=== PATIENT | male | born 2000 ===

== ENCOUNTER 2023-12-28 05:43 | Emergency (ER) | payer MEDICAID, SELFPAY ==
[2023-12-28 05:53] VITALS: BP 108/75; PULSE 78; RESP 18; TEMP 36.4; O2SAT 99; BMI 17.5
[2023-12-28 06:54] LABS: Basophils Absolute Auto 0.1 X10*3/uL (0.0-0.2); Basophils Percent Auto 0.6 % (0-2); Eosinophils Absolute Auto 0.3 X10*3/uL (0.0-0.4); Eosinophils Percent Auto 3.1 % (0-4); Hematocrit 45.3 % (42.0-52.0); Hemoglobin 16.1 g/dl (14.0-18.0); Imm Gran Abs Auto 0.02 X10*3/uL (0.00-0.03); Imm Gran Pct Auto 0.2 % (0.0-0.4); Lymphocytes Absolute Auto 2.1 X10*3/uL (1.2-4.9); Lymphocytes Percent Auto 24.8 % (20-40); MANUAL DIFF FLAG NO; Mean Corpuscular HGB Conc 35.5 g/dl (31.0-36.0); Mean Corpuscular Hemoglobin 30.3 pg (27.0-33.0); Mean Corpuscular Volume 85.3 fL (80.0-98.0); Mean Platelet Volume 10.3 fL (9.4-12.4); Monocytes Absolute Auto 0.7 X10*3/uL (0.1-1.2); Monocytes Percent Auto 8.1 % (2-11); Neutrophils Absolute Auto 5.3 x10*3/uL (2.0-8.3); Neutrophils Percent Auto 63.2 % (45-73); Platelet Count 191 X10*3/uL (160-400); Red Blood Count 5.31 X10*6/uL (4.60-5.80); Red Cell Distribution Width 11.7 % (11.0-16.0); White Blood Count 8.4 X10*3/uL (4.8-10.8)
[2023-12-28 07:09] VITALS: BP 119/74; PULSE 74; RESP 16; TEMP 36.8; O2SAT 100
--- NOTE | 2023-12-28 07:14 | PC.NURSE ---
a&ox4. vss and up to date. pt presents to ED w/ left sided facial swelling d/t chipped tooth on left side. tooth split in half. facial swelling noted. pt denies fever/chills. c/o 9/10 pain. states nothing makes pain increase/decrease. pt waiting to be seen by ED provider.
[2023-12-28 07:16] LABS: Alanine Aminotransferase 13 U/L (0-40); Alkaline Phosphatase 131 U/L (39-117); Anion Gap 12 (12-20); Aspartate Amino Transferase 15 U/L (5-37); Bilirubin Total 0.4 mg/dL (0.0-1.0); Blood Urea Nitrogen 10 mg/dL (9-16); Carbon Dioxide 25 mmol/L (22-29); Chloride 109 mmol/L (96-108); Creatinine Clr Calc Pharmacy 87.7; Estimated Glomerular Filt Rate > 60; Glucose Random 98 mg/dL (60-115); Sodium 141 mmol/L (135-145); Total Protein 7.4 g/dL (6.5-8.0)
--- NOTE | 2023-12-28 07:48 | ED_ITS ---
HPI - Dental/Oral General Chief complaint: Dental/Oral Stated complaint: ?Dental pain/Facial swelling Time Seen by Provider: 12/28/23 07:15 Source: patient Mode of arrival: ambulatory Limitations: language barrier History of Present Illness HPI Narrative: History obtained through siderographer. Left facial swelling with tooth pain. Patient has a left upper tooth that is decayed down to the gum, has not seen a dentist Complaint: tooth pain and tooth injury Teeth map: 2 1. Onset (ago): day(s) Duration: constant Severity: moderate Related Data Previous Rx's Medication Instructions Recorded amoxicillin 875 mg-potassium 1 tab PO BID #14 tabs 12/28/23 clavulanate 125 mg tablet naproxen 500 mg tablet (Naprosyn) 500 mg PO BID #20 tabs 12/28/23 Allergies Allergy/AdvReac Type Severity Reaction Status Date / Time No Known Allergies Allergy Verified 12/28/23 05:48 [No Known Allergies*] Review of Systems 2 Review of Systems: Yes all other systems are reviewed and are negative Neurologic: Denies Sensory deficit (Neuro) [facility] Social History Social History Smoked in Last 30 Days: No Use of substances other than those prescribed or required for medical reasons: No Advance Directives: No Physical Exam 2 Vital Signs: Vital Signs: Last Vital Signs Temp 98.2 F 12/28/23 07:09 Pulse 74 12/28/23 07:09 Resp 16 12/28/23 07:09 BP 119/74 12/28/23 07:09 Pulse Ox 100 12/28/23 07:09 O2 Del Method Room Air 12/28/23 07:09 BMI result Body Mass Index 17.5 Const: General: healthy appearing Nutritional Appearance: average body habitus Orientation/consciousness: oriented to person and patient oriented x3 Limitations: no limitations HEENT: Other: left facial swelling with upper premolar broken down to the gum line, no pus or drainage noted Ears: external ears normal General nose exam: Normal external nose present Mouth: Normal oral and palatal mucosa present and oropharynx normal Throat: Yes posterior oropharynx normal Eyes: General: appearance normal, both eyes and all related structures Neck: Other: supple Neck: Yes normal visual inspection Chest: Chest palpation & inspection: normal inspection of the chest Resp: Auscultation: clear to auscultation bilaterally Cardio: Jugular venous distension: no JVD Rate: regular rate Rhythm: r egular rhythm Heart sounds: S1 normal heart sound present and S2 normal heart sound present GI: Inspection: Yes normal to inspection Palpation (GI): Soft to palpation, nontender and No hepatosplenomegaly present Auscultation: normal bowel sounds : General: Yes no CVA tenderness Back/Spine/Pelvis: Back: no CVA tenderness Skin: General skin exam: no rashes or lesions noted Neuro: General: oriented to person and patient oriented x3 Cranial nerves: Yes CN's II-XII intact bilaterally Motor exam (neuro): 5/5 motor strength present throughout Sensory Exam: No Sensory deficit (Neuro) Extrem: General: Yes normal to inspection Psych: Appearance: grossly normal Course Reevaluation(s) Reevaluation #1: Facial swelling, no pus drainage will treat with augmentin and naprosyn Time: 07:52 Medical Decision Making Differential Diagnosis Differential Diagnoses: The differential diagnosis associated with the presentation includes (dental abscess, dental infection, sinusitis) Admission/Observation Consideration of admission/observation: Escalation of care including admission/observation considered (upon arrival patient considered for admission) Lab Data 12/28/23 06:49 12/28/23 06:49 Labs: Lab Results 12/28/23 Range/Units 06:49 WBC 8.4 (4.8-10.8) X10*3/uL RBC 5.31 (4.60-5.80) X10*6/uL Hgb 16.1 (14.0-18.0) g/dl Hct 45.3 (42.0-52.0) % MCV 85.3 (80.0-98.0) fL MCH 30.3 (27.0-33.0) pg MCHC 35.5 (31.0-36.0) g/dl RDW 11.7 (11.0-16.0) % Plt Count 191 (160-400) X10*3/uL MPV 10.3 (9.4-12.4) fL Immature Gran % (Auto) 0.2 (0.0-0.4) % Neut % (Auto) 63.2 (45-73) % Lymph % (Auto) 24.8 (20-40) % [place] % (Auto) 8.1 (2-11) % Eos % (Auto) 3.1 (0-4) % Baso % (Auto) 0.6 (0-2) % Lymph # (Auto) 2.1 (1.2-4.9) X10*3/uL [place] # (Auto) 0.7 (0.1-1.2) X10*3/uL Eos # (Auto) 0.3 (0.0-0.4) X10*3/uL Baso # (Auto) 0.1 (0.0-0.2) X10*3/uL Abs Immat Gran (auto) 0.02 (0.00-0.03) X10*3/uL Absolute Neuts (auto) 5.3 (2.0-8.3) x10*3/uL Absolute Nucleated RBC 0.000 (0.0-0.012) X10*3/uL Nucleated RBC % (auto) 0.0 (0.0-0.2) /100WBC Sodium 141 (135-145) mmol/L Potassium 5.0 (3.3-5.1) mmol/L Chloride 109 H (96-108) mmol/L Carbon Dioxide 25 (22-29) mmol/L Anion Gap 12 (12-20) BUN 10 (9-16) mg/dL Creatinine 0.95 (0.5-1.4) mg/dL Estim Creat Clear Calc 87.7 Estimated GFR > 60 Random Glucose 98 (60-115) mg/dL Calcium 9.0 (8.4-10.2) mg/dL Total Bilirubin 0.4 (0.0-1.0) mg/dL AST 15 (5-37) U/L ALT 13 (0-40) U/L Alkaline Phosphatase 131 H (39-117) U/L Total Protein 7.4 (6.5-8.0) g/dL Albumin 4.0 (3.5-5.0) g/dL Tests considered The following testing was considered but not selected: I considered dental imaging but no access to a panorex film for dental imaging Social Determinants Patient?s care significantly limited by Social Determinants of Health including: Low income Discharge Plan Discharge Clinical Impression: Toothache, Dental caries, Fracture of tooth Patient Disposition: Home, Self-Care Instructions: Toothache (ED), Tooth Extraction (DC) Prescriptions: New amoxicillin-pot clavulanate 875-125 mg tablet 1 tab PO BID Qty: 14 0RF naproxen [Naprosyn] 500 mg tablet 500 mg PO BID Qty: 20 0RF [facility] days
[2023-12-28] MEDS: Amoxicillin/Potassium Clav 875 MG TABLET PO (08:05)
[2023-12-28] MEDS: Ketorolac Tromethamine 60 MG/2 ML VIAL IM (08:06)
--- NOTE | 2023-12-28 08:06 | PC.NURSE ---
medication administered per provider order. pt provided w/ d/c paperwork. pt leaving [facility] facility at this time.
[2023-12-28 08:16] VITALS: BP 119/74; PULSE 74; RESP 16; TEMP 36.8; O2SAT 100
== END 2023-12-28 08:18 | disposition home or self-care (01) ==
PROVIDERS: Emergency Provider Emergency Medicine
DX: K02.9 Dental caries, unspecified (principal); K03.81 Cracked tooth; Z79.899 Other long term (current) drug therapy
CPT/HCPCS: 36415; 80053; 85025; 96372; 99284; J1885

== ENCOUNTER 2024-06-04 17:39 | Emergency (ER) | payer OTHER, SELFPAY ==
--- NOTE | 2024-06-04 17:55 | ED.GENADULT ---
HPI - General Adult General Chief complaint: Headache Stated complaint: migraine Related Data Previous Rx's ?Medication ?Instructions ?Recorded amoxicillin 875 mg-potassium 1 tab PO BID #14 tabs 12/28/23 clavulanate 125 mg tablet naproxen 500 mg tablet (Naprosyn) 500 mg PO BID #20 tabs 12/28/23 Allergies Allergy/AdvReac Type Severity Reaction Status Date / Time No Known Allergies Allergy Verified 06/04/24 17:58 [No Known Allergies*] PMFSH Social History Social History Advance Directives: No Advance Directives Information Provided: No Do you have a plan to hurt others: No Plan Physical Exam ED Vital Signs: Vital Signs - 24 hr 06/04/24 17:56 Temperature 98.4 F Pulse Rate 73 Respiratory Rate 16 Blood Pressure 129/79 Pulse Oximetry 97 Oxygen Delivery Method Room Air BMI result Body Mass Index 20.2 Course Course Course Narrative: This is a rapid medical exam performed by Viktor Fonseca NP: Additional HPI, ROS, PE not included below will be deferred to primary provider. Patient is a 24-year-old male with history of migraines presenting with headache for 5 days, starts in back of head, goes to forehead and right eye. States he bought some pills that cost $1 at the store and took those for his headache without relief. Patient A+Ox3, no focal neurological deficits, ambulating with steady gait, in no acute distress. Plan: viral serology Medical Decision Making Lab Data Labs: Lab Results 06/04/24 Range/Units 18:33 Influenza Type A (PCR) NEGATIVE (Negative) Influenza Type B (PCR) NEGATIVE (Negative) RSV RNA Qual (PCR) NEGATIVE (Negative) SARS-CoV-2 RNA (RT-PCR) NEGATIVE (Negative) Discharge Plan Discharge Clinical Impression: Headache Patient Disposition: Left W/O Completing Treatment Prescriptions: No Action amoxicillin-pot clavulanate 875-125 mg tablet 1 tab PO BID Qty: 14 0RF naproxen [Naprosyn] 500 mg tablet 500 mg PO BID Qty: 20 0RF Discharge Date/Time: 06/04/24 21:17
[2024-06-04 17:56] VITALS: BP 129/79; PULSE 73; RESP 16; TEMP 36.9; O2SAT 97; BMI 20.2
[2024-06-04 19:14] LABS: Influenza A PCR NEGATIVE (Negative); Influenza B PCR NEGATIVE (Negative); Resp Syncy Virus RNA Qual PCR NEGATIVE (Negative); SARS COV2 PCR INHOUSE NEGATIVE (Negative)
== END 2024-06-04 21:17 | disposition left against medical advice (07) ==
LOC: HO.ED 21:15
PROVIDERS: Registered Nurse Emergency; Emergency Provider Emergency Medicine
DX: G43.909 Migraine, unspecified, not intractable, without status migrainosus (principal); Z03.818 Encounter for observation for suspected exposure to other biological agents ruled out
CPT/HCPCS: 0241U; 99281

== ENCOUNTER 2024-08-23 18:41 | Emergency (ER) | payer MEDICAID, SELFPAY ==
--- NOTE | ~2024-08-23 | XR_ITS ---
EXAMINATION: XR CHEST CLINICAL INFORMATION: Cough. COMPARISON: Chest 07/27/2019 TECHNIQUE: 2 views of the chest were obtained. FINDINGS: No significant abnormality is noted involving the heart, lungs, mediastinum, bony thorax or soft tissues. XR/XR chest 2V IMPRESSION: Unremarkable chest examination. Electronically signed by: Deon Samuel MD 08/23/2024 09:29 PM [facility]
[2024-08-23 18:45] VITALS: BP 122/74; PULSE 96; RESP 20; TEMP 37.2; O2SAT 98; BMI 20.5
[2024-08-23 20:07] LABS: IDNOW Serial# 08D9AD1C; Strep A Nucleic Acid Positive (Negative)
[2024-08-23 20:33] LABS: Influenza A PCR NEGATIVE (Negative); Influenza B PCR NEGATIVE (Negative); Resp Syncy Virus RNA Qual PCR NEGATIVE (Negative); SARS COV2 PCR INHOUSE NEGATIVE (Negative)
--- NOTE | 2024-08-23 22:17 | ED.GENADULT ---
HPI - General Adult General Chief complaint: Upper Respiratory Symptoms Stated complaint: personal Time Seen by Provider: 08/23/24 22:07 Source: patient, RN notes reviewed, old records reviewed and foreign language interpreter Mode of arrival: ambulatory Limitations: language barrier History of Present Illness ED Provider: Tio HPI narrative: 24-year-old male who denies any past medical history presents for evaluation of cough, sore throat. Patient reports his symptoms started 2 days ago. He is able to swallow but has painful swallowing. Denies any significant shortness of breath despite his cough. He reports some chest tightness with coughing He denies any sick contacts. Denies any recent travel outside [facility]. No other complaints or concerns at this time Related Data Previous Rx's ?Medication ?Instructions ?Recorded amoxicillin 875 mg-potassium 1 tab PO BID #14 tabs 12/28/23 clavulanate 125 mg tablet naproxen 500 mg tablet (Naprosyn) 500 mg PO BID #20 tabs 12/28/23 amoxicillin 875 mg-potassium 1 tab PO Q12H #14 tabs 08/23/24 clavulanate 125 mg tablet Allergies Allergy/AdvReac Type Severity Reaction Status Date / Time No Known Allergies Allergy Verified 08/23/24 18:47 [No Known Allergies*] Review of Systems Constitutional: Constitutional: Reports body ache(s), Denies chills, Denies fever(s) and Denies headache(s) ENT: Denies headache(s) and Reports sore throat Cardiovascular: Cardiovascular: Denies dyspnea Respiratory: Respiratory: Reports chest congestion, Reports cough, Reports pain with cough and Denies dyspnea Gastrointestinal: Gastrointestinal: Denies abdominal pain, Denies nausea and Denies vomiting Musculoskeletal: Musculoskeletal: Denies back pain Integumentary/Breasts: Skin/Breast: Denies rash Neurologic: Denies headache(s) [facility] Social History Social History Advance Directives: No Advance Directives Information Provided: Yes Do you have a plan to hurt others: No Plan Physical Exam ED Vital Signs: Vital Signs - 24 hr 08/23/24 18:45 08/23/24 22:36 Temperature 98.9 F 98.9 F Pulse Rate 96 96 Respiratory Rate 20 20 Blood Pressure 122/74 122/74 Pulse Oximetry 98 98 Oxygen Delivery Method Room Air Room Air BMI result Body Mass Index 20.5 Const General: healthy appearing, comfortable, no acute distress, alert and awake Nutritional Appearance: well nourished Orientation/consciousness: patient oriented x3 HENMT Other: Erythematous oropharynx, no obvious exudates or peritonsillar abscess Head: Yes normocephalic and Yes atraumatic Eyes Eyelids: Yes eyelids normal Conjunctivae: conjunctivae normal Sclerae: sclerae normal Corneas: corneas normal Pupils: Equal, round and reactive pupils present EOM: EOMs intact bilaterally Neck Neck: Yes full ROM Resp Effort & Inspection: normal respiratory effort, able to speak in complete sentences, no audible wheezes and not labored Auscultation: clear to auscultation bilaterally Cardio Rate: regular rate Rhythm: regular rhythm GI Inspection: No distended Palpation (GI): Soft to palpation, not firm, nontender, no guarding and not rigid Skin General skin exam: no rashes or lesions noted and elasticity normal Neuro General: patient oriented x3 Cranial nerves: Yes Equal, round and reactive pupils present and Yes Bilaterally intact EOM present Cognition (Neuro): normal cognition Extrem Other: Moving all extremities well without any obvious deformities Medications Administered Discontinued Medications Generic Name Dose Route Start Last Admin Trade Name Freq PRN Reason Stop Dose Admin Amoxicillin/Clavulanate Potassium 875 mg 08/23/24 22:24 08/23/24 22:33 Amoxicillin/Potassium Clav 875 Mg Tablet PO 08/23/24 22:25 875 mg ONCE ONE Administration Medical Decision Making Medical Decision Making [facility] Narrative: The patient is quite well appearing with stable vital signs, he tested positive for strep pharyngitis and will be treated with Augmentin b.i.d. x7 days. Chest x-ray was clear Differential Diagnosis Differential Diagnoses: The differential diagnosis associated with the presentation includes Viral syndrome Strep pharyngitis Upper respiratory infection Pneumonia COVID-19 Lab Data Labs: Lab Results 08/23/24 Range/Units 19:52 Influenza Type A (PCR) NEGATIVE (Negative) Influenza Type B (PCR) NEGATIVE (Negative) RSV RNA Qual (PCR) NEGATIVE (Negative) SARS-CoV-2 RNA (RT-PCR) NEGATIVE (Negative) S. pyogenes GrpA SILVANO Positive A (Negative) Independent Interpretation I performed an independent interpretation of an: Plain X-Ray Interpretation: No focal infiltrates Radiology Impression Discussion of test interpretation with radiology: I have reviewed the radiologist's reading. Radiologist Impression: FINDINGS: No significant abnormality is noted involving the heart, lungs, mediastinum, bony thorax or soft tissues. XR/XR chest 2V IMPRESSION: Unremarkable chest examination. Electronically signed by: Deon Samuel MD 08/23/2024 09:29 PM [facility] Discharge Plan Discharge Clinical Impression: Acute streptococcal pharyngitis Patient Disposition: Home, Self-Care Instructions: Strep Throat (ED) Additional Instructions: You tested positive for strep pharyngitis. Take the antibiotic twice daily for 1 week Use ibuprofen/Tylenol for pain I recommend that you change your toothbrush after your last dose of antibiotics Prescriptions: New amoxicillin-pot clavulanate 875-125 mg tablet 1 tab PO Q12H Qty: 14 0RF No Action amoxicillin-pot clavulanate 875-125 mg tablet 1 tab PO BID Qty: 14 0RF naproxen [Naprosyn] 500 mg tablet 500 mg PO BID Qty: 20 0RF Stand Alone Forms: Work/School Release Interventions: ED Discharge Assessment Last Done: 08/23/24 22:36 Discharge Date/Time: 08/23/24 22:37 Print Language: Luxembourgish
[2024-08-23] MEDS: Amoxicillin/Potassium Clav 875 MG TABLET PO (22:33)
[2024-08-23 22:36] VITALS: BP 122/74; PULSE 96; RESP 20; TEMP 37.2; O2SAT 98
== END 2024-08-23 22:37 | disposition home or self-care (01) ==
PROVIDERS: Emergency Provider Emergency Medicine Emergency Medical Services
DX: J02.0 Streptococcal pharyngitis (principal); R05.9 Cough, unspecified; Z03.818 Encounter for observation for suspected exposure to other biological agents ruled out
CPT/HCPCS: 0241U; 71046; 87651; 99282; 99283

== ENCOUNTER 2025-09-25 06:49 | Emergency (ER) | payer OTHER, SELFPAY ==
--- NOTE | ~2025-09-25 | CT_ITS ---
EXAMINATION: CT ABDOMEN AND PELVIS WITH CONTRAST CLINICAL INFORMATION: Epigastric pain, nausea, vomiting, diarrhea COMPARISON: None available. TECHNIQUE: Multidetector volumetric images were obtained from the superior aspect of the liver through the pubic symphysis following administration 85 mL of Omnipaque 350 intravenous contrast. Sagittal and coronal reformatted images were obtained on the technologist's workstation. Oral contrast: No This CT examination was performed using dose optimization techniques as appropriate, variously including the following: *Automated exposure control *Adjustment of mA and/or kV according to patient size (this includes techniques or standardized protocols for targeted exams where dose is matched to indication/reason for exam; i.e. extremities or head) *Use of iterative reconstruction technique FINDINGS: LUNG BASES: The visualized lung bases are unremarkable. LIVER, GALLBLADDER, AND BILIARY TREE: The liver is normal in size, shape, and attenuation. No focal hepatic lesion or biliary ductal dilatation is present. The gallbladder is unremarkable with no evidence of radiopaque gallstones, gallbladder wall thickening, or obvious pericholecystic inflammatory changes. PANCREAS: Unremarkable. SPLEEN: Unremarkable. ADRENAL GLANDS: Unremarkable. KIDNEYS AND URETERS: Right kidney is absent. There are multiple since the left kidney. In the upper pole, there is an 8 x 15 mm stone. Adnexal region, there is a staghorn calculus measuring 4 x 33 mm In the lower pole, there is a 6 x 18 mm stone. There are a few other smaller stones. There are no obstructing stones. BLADDER: Unremarkable. GASTROINTESTINAL TRACT: There is fluid filling portions of the ileum and the distal jejunum. Portions of the small bowel are decompressed. There is no wall thickening or dilation The colon is mostly decompressed. The appendix is mostly gas-filled and thin-walled. ABDOMINAL WALL: No significant hernia is appreciated. LYMPH NODES: Normal. VASCULAR: Unremarkable. PELVIC VISCERA: Unremarkable. OSSEOUS STRUCTURES: Unremarkable. CT/CT abdomen pelvis w IV con IMPRESSION: There are multiple stones in the left kidney including 3 Staghorn calculi. Absent right kidney. Fluid-filled loops of small bowel with a slightly decompressed colon is likely related to gastroenteritis. There is no sign of obstruction or bowel wall thickening. Fleischner guidelines were followed. Electronically signed by: Simeon Wells MD 09/25/2025 10:05 AM [facility]
[2025-09-25 07:21] VITALS: BP 108/76; BP 141/84; PULSE 73; PULSE 96; RESP 16; TEMP 36.9; O2SAT 96; O2SAT 98; BMI 20.1
[2025-09-25 07:42] LABS: MANUAL DIFF FLAG NO
[2025-09-25 07:44] LABS: Hematocrit 43.5 % (42.0-52.0); Hemoglobin 15.3 g/dl (14.0-18.0); Imm Gran Abs Auto 0.07 X10*3/uL (0.00-0.03); Imm Gran Pct Auto 0.6 % (0.0-0.4); Lymphocytes Absolute Auto 0.7 X10*3/uL (1.2-4.9); Mean Corpuscular HGB Conc 35.2 g/dl (31.0-36.0); Mean Corpuscular Hemoglobin 30.5 pg (27.0-33.0); Mean Corpuscular Volume 86.7 fL (80.0-98.0); NRBC Abs Auto 0.000 X10*3/uL (0.0-0.012); NRBC Pct Auto 0.0 /100WBC (0.0-0.2); Platelet Count 205 X10*3/uL (160-400); Red Blood Count 5.02 X10*6/uL (4.60-5.80); White Blood Count 11.5 X10*3/uL (4.8-10.8)
--- OUTSIDE RECORDS SUMMARY | 2025-09-25 07:59 | XMS_ITS | Clinical Summary ---
Author Organization [employer] Address [address] [place] [address] Care Team Providers Care Data Center Consultant Name Role Phone Unavailable Primary Care Provider Unavailabl e Social History Tobacco Use Types Packs/Day Years Used Date Smoking Tobacco: Never Assessed Sex and Gender Information Value Date Recorded Sex Assigned at Male 03/27/2025 4:10 PM EDT Legal Sex Male 12:26 PM EDT Gender Identity Male 03/27/2025 4:10 PM EDT Sexual Orientation Choose not to disclose 2024 4:10 PM EDT Plan of Treatment Health Maintenance Due Date Last Done Comments Depression Screening 1998 HIV Screening 1998 SDOH Screening 1998 Disability Screening 1998 Alcohol/Substance Use Screening 2010 Tobacco Screening 2010 Family Planning (PISQ) 2013 HPV Vaccines (1 - Male 3-dos e series) 2013 Hepatitis C Screening 02/11/2016 DTaP/Tdap/Td Vaccines (1 - Tdap) 2017 Hepatitis B Vaccines (1 of 3 - 19+ 3-dose series) 2017 COVID-19 Vaccine (1 - 2024-2 6 season) 2025 Influenza Vaccine (#1) 2025 Zoster Vaccines (1 of 2) 02/11/2048 RSV Patients and Pa tients Aged 60 years or older (1 - 1-dose 75+ series) 2073 HIB Vaccines Aged Out No longer eligi ble based on patient's age to complete this topic Hepatitis A Vaccines Aged Out No long er eligible based on patient's age to complete this topic IPV Vaccines Aged Out No longer eligi ble based on patient's age to complete this topic Meningococcal B Vaccine Aged Out No l onger eligible based on patient's age to complete this topic Meningococcal Vaccine Aged Out No debi rufus eligible based on patient's age to complete this topic Pneumococcal Vaccine: Pediat rics (0 to 5 Years) and At-Risk Patients (6 to 49) Years Aged Out No longer eligible b ased on patient's age to complete this topic RSV under 20 months Aged Out No longe r eligible based on patient's age to complete this topic Rotavirus Vaccines Aged Out No longer eligible based on patient's age to complete this topic Insurance * Guarantor: Man [employer] Account Type Relation to Patient Date of Phone Billing Address Personal/Family Self 2000 [address] [place] [address] [facility] [employer]
--- OUTSIDE RECORDS SUMMARY | 2025-09-25 07:59 | XMS_ITS | Clinical Summary ---
Author Organization [facility] Address [address] [place] [address] Care Team Providers Care Desktop Publishing Operator Name Role Phone Unavailable Primary Care Provider Unavailabl e Social History Tobacco Use Types Packs/Day Years Used Date Smoking Tobacco: Never Assessed Sex and Gender Information Value Date Recorded Sex Assigned at Not on file Legal Sex Male 8:51 PM EST Gender Identity Not on file Sexual Orientation Not on file Plan of Treatment Health Maintenance Due Date Last Done Comments DTaP,Tdap,and Td Vaccines (1 - Tdap) 2017 Hepatitis B Vaccines (1 of 3 - 19+ 3-dose series) 2017 HIV Screening 07/18/2024 Hepatitis C Screening 07/18/2024 Social Influencers of Health Screening 07/18/2024 Depression Screening 10/11/2024 HPV Vaccines (1 - 3-dose SCD M series) 2025 COVID-19 Vaccine ( - 2024-2 6 season) 2025 Influenza Vaccine (#1) 2025 RSV Immunization Adult Patie nts (1 - 1-dose 75+ series) 2073 HIB Vaccines Aged Out No longer eligi ble based on patient's age to complete this topic Hepatitis A Vaccines Aged Out No long er eligible based on patient's age to complete this topic IPV Vaccines Aged Out No longer eligi ble based on patient's age to complete this topic MMR Vaccines Aged Out No longer eligi ble based on patient's age to complete this topic Meningococcal ACWY Vaccine Aged Out N o longer eligible based on patient's age to complete this topic Meningococcal B Vaccine Aged Out No l onger eligible based on patient's age to complete this topic Pneumococcal Vaccine: Pediat rics (0 to 5 Years) and At-Risk Patients (6 to 49 Years) Aged Out No longer eligible b ased on patient's age to complete this topic RSV Immunization Patients Un arturo 20 months Aged Out No longer eligible b ased on patient's age to complete this topic Varicella Vaccines Aged Out No longer eligible based on patient's age to complete this topic
[2025-09-25 08:01] LABS: Alanine Aminotransferase 22 U/L (0-40); Albumin Level 4.7 g/dL (3.5-5.0); Alkaline Phosphatase 133 U/L (39-117); Anion Gap 12 (12-20); Aspartate Amino Transferase 28 U/L (5-37); Blood Urea Nitrogen 13 mg/dL (9-16); Calcium 9.3 mg/dL (8.4-10.2); Carbon Dioxide 25 mmol/L (22-29); Chloride 107 mmol/L (96-108); Creatinine Clr Calc Pharmacy 102.7; Estimated Glomerular Filt Rate > 60; Magnesium 1.8 mg/dL (1.6-2.6); Potassium 4.8 mmol/L (3.3-5.1); Sodium 139 mmol/L (135-145); Total Protein 8.0 g/dL (6.5-8.0)
--- NOTE | 2025-09-25 08:44 | ED_ITS ---
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 He reports associated epigastric abdominal pain which began after multiple episodes of vomiting. No abnormal foods. Other individuals in his household the same meal for dinner and are asymptomatic. Denies fever, chills. Denies recent travel outside the [place]. Denies hx of abdominal surgery. Denies marijuana use or etoh consumption. Related Data Previous Rx's ?Medication ?Instructions ?Recorded amoxicillin 875 mg-potassium 1 tab PO BID #14 tabs clavulanate 125 mg tablet naproxen 500 mg tablet (Naprosyn) 500 mg PO BID #20 ta bs 12/28/23 amoxicillin 875 mg-potassium 1 tab PO Q12H #14 tabs clavulanate 125 mg tablet loperamide 2 mg capsule 2 mg PO Q6H PRN loose stool #14 09/25/25 caps prochlorperazine maleate 5 mg 5 mg PO TID PRN nausea a nd 09/25/25 tablet (Compazine) vomiting #9 tabs Allergies Allergy/AdvReac Type Severity Reaction Status Date / Time No Known Allergies (No Known Allergy Verified 09/25/25 07:24 Allergies*) Review of Systems 2 Review of Systems: Yes all other systems are reviewed and are negative PMFSH Past Medical History Attestation statement: The following information was validated with the patient. Source: old records reviewed and nursing notes reviewed Physical Exam 2 Vital Signs: Vital Signs: Last Vital Signs Temp 99.3 F 09/25/25 16:14 Pulse 107 H 09/25/25 16:14 Resp 16 09/25/25 16:14 BP 125/63 09/25/25 16:14 Pulse Ox 95 09/25/25 16:14 O2 Del Method Room Air 09/25/25 16:14 BMI result Body Mass Index 20.1 hypertensive, vitals are otherwise wnl General: NAD Skin: Warm, dry, intact. No rashes or lesions. Head: Normocephalic, atraumatic. EENT: Hearing is intact b/l. Conjunctiva clear. PERRLA. EOM intact. Moist mucous membranes.? Cardiac: Chest wall symmetric. RRR Lungs: Normal respiratory effort without accessory muscle use. CTA bilaterally Abdomen: Soft, non-tender, non-distended. No rebound tenderness or guarding. negative mancini. Positive BS x4. no cvat. Back: No midline spinous or paraspinal tenderness. No step off deformity. Ext: Upper and lower extremities atraumatic, without tenderness, deformity, swelling or erythema. Full ROM throughout. Neuro: AOx3. Normal speech. Ambulating with steady gait. Course Course Course Narrative: 1352 -- CBC with leukocytosis to 11.5 with shift. This is likely reactive from vomiting. Chemistry without acute electrolyte abnormality requiring intervention. No ABHISHEK. Random glucose 143, no anion gap. Liver function is around baseline. Lipase WNL. Negative COVID, flu, RSV. 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 There are multiple stones to left kidney, no obstructing ureteral stones. There are fluid-filled portions of the ileum and distal jejunum, portions of the small bowel or decompressed, no wall thickening or dilation. Findings consistent to gastroenteritis. No evidence of obstruction. No evidence of appendicitis. > i discussed all work up results with patient. he tells me that he is unaware that he only has one kidney. he was born in [place]. To his knowledge, he never had an operation to remove his right kidney. This is likely congenital. 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 He will need to follow up with Urology outpatient. I will provide him with a referral. > patient has gastroenteritis. his abdominal exam is unremarkable. he has been treated with zofran, reglan and benadryl however has vomited x2 since receiving these meds. he denies marijuana use. will trial compazine. if he is able to tolerate PO, he may be discharged home with supportive care. 1600 -- Patient treated w/ compazine with good effect. tolerating PO. no further nausea/vomiting. will d/c home with meds + supportive treatment. Patient has remained stable throughout ED visit today. Discussed worrisome signs and symptoms and when to return to the ED. All questions answered at this time. Patient is agreeable with disposition and stable for discharge. Medications Administered Discontinued Medications Generic Name Dose Route Start Last Admin Trade Name Violet PRN Reason Stop Dose Admin Diphenhydramine HCl 25 mg 09/25/25 11:04 09/25/25 11:18 Diphenhydramine Hcl 50 Mg/Ml Vial IVPUSH 09/25/25 11:05 25 mg ONCE ONE Administration Sodium Chloride 1,000 mls @ 999 mls/hr 09/25/25 08:45 09/25/25 11:15 Ns IV 09/25/25 09:45 Infused .Q1H1M FAITH Infusion Iohexol 100 ml 09/25/25 09:47 09/25/25 09:48 Iohexol 350 Mg/Ml 100 Ml Infus..Btl IV 09/25/25 09:48 85 ml ONCE ONE Administration Metoclopramide HCl 10 mg 09/25/25 11:04 09/25/25 11:18 Metoclopramide Hcl 10 Mg/2 Ml Vial IVPUSH 09/25/25 11:05 10 mg ONCE ONE Administration Ondansetron HCl 4 mg 09/25/25 08:43 09/25/25 09:05 Ondansetron Hcl 4 Mg/2 Ml Vial IVPUSH 09/25/25 08:44 4 mg ONCE ONE Administration Prochlorperazine Edisylate 5 mg 09/25/25 13:26 09/25/25 13:47 Prochlorperazine Edisylate 10 Mg/2 Ml Vial IVPUSH 09/25/25 13:27 5 mg ONCE ONE Administration Medical Decision Making Medical Decision Making MDM Narrative: 25-year-old male presents to the ED today for evaluation of acute onset nausea, vomiting and diarrhea which began around midnight (approximately 8 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 Differential diagnosis includes viral syndrome, gastritis, gastroenteritis, cyclical vomiting syndrome, biliary colic, PUD. Abdominal exam without peritoneal signs. No evidence of acute abdomen at this time. Well appearing. Moderate suspicion for acute hepatobiliary disease (including acute cholecystitis). Less likely to represent acute pancreatitis, perforated ulcer/ GI bleed, acute infectious processes (pneumonia, hepatitis, pyelonephritis), atypical appendicitis, vascular catastrophe, bowel obstruction or viscus perforation. Presentation not consistent with other acute, emergent causes of abdominal pain at this time. Plan: labs, viral syndrome, CT, IVF, zofran Differential Diagnosis Differential Diagnoses: The differential diagnosis associated with the presentation includes as above Admission/Observation not indicated Lab Data MDM Lab Attestation statement: I reviewed the patient's lab results. as above. 09/25/25 07:37 09/25/25 07:37 Labs: Lab Results 09/25/25 09/25/25 Range/Units 07:37 10:56 WBC 11.5 H (4.8-10.8) X10*3/uL RBC 5.02 (4.60-5.80) X10*6/uL Hgb 15.3 (14.0-18.0) g/dl Hct 43.5 (42.0-52.0) % MCV 86.7 (80.0-98.0) fL MCH 30.5 (27.0-33.0) pg MCHC 35.2 (31.0-36.0) g/dl RDW 12.2 (11.0-16.0) % Plt Count 205 (160-400) X10*3/uL MPV 9.8 (9.4-12.4) fL Immature Gran % (Auto) 0.6 H (0.0-0.4) % Neut % (Auto) 88.4 H (45-73) % Lymph % (Auto) 6.0 L (20-40) % Weakley % (Auto) 4.4 (2-11) % Eos % (Auto) 0.3 (0-4) % Baso % (Auto) 0.3 (0-2) % Lymph # (Auto) 0.7 L (1.2-4.9) X10*3/uL Weak[place] # (Auto) 0.5 (0.1-1.2) X10*3/uL Eos # (Auto) 0.0 (0.0-0.4) X10*3/uL Baso # (Auto) 0.0 (0.0-0.2) X10*3/uL Abs Immat Gran (auto) 0.07 H (0.00-0.03) X10*3/uL Absolute Neuts (auto) 10.2 H (2.0-8.3) x10*3/uL Absolute Nucleated RBC 0.000 (0.0-0.012) X10*3/uL Nucleated RBC % (auto) 0.0 (0.0-0.2) /100WBC Sodium 139 (135-145) mmol/L Potassium 4.8 (3.3-5.1) mmol/L Chloride 107 (96-108) mmol/L Carbon Dioxide 25 (22-29) mmol/L Anion Gap 12 (12-20) BUN 13 (9-16) mg/dL Creatinine 0.97 (0.5-1.4) mg/dL Estim Creat Clear Calc 102.7 Estimated GFR > 60 Random Glucose 143 H (60-115) mg/dL Calcium 9.3 (8.4-10.2) mg/dL Magnesium 1.8 (1.6-2.6) mg/dL Total Bilirubin 0.5 (0.0-1.0) mg/dL AST 28 (5-37) U/L ALT 22 (0-40) U/L Alkaline Phosphatase 133 H (39-117) U/L Total Protein 8.0 (6.5-8.0) g/dL Albumin 4.7 (3.5-5.0) g/dL Lipase 16 (8-78) U/L Influenza Type A (PCR) NEGATIVE (Negative) Influenza Type B (PCR) NEGATIVE (Negative) RSV RNA Qual (PCR) NEGATIVE (Negative) SARS-CoV-2 RNA (RT-PCR) NEGATIVE (Negative) Independent Interpretation I performed an independent interpretation of an: CT Scan Interpretation: ct a/p without bowel obstruction Radiology Impression Discussion of test interpretation with radiology: I have reviewed the radiologist's reading. Radiologist Impression: Procedure(s): CT abdomen pelvis w IV con Accession Number(s): [id number] cc: Physician,Unknown ; Wanda Herzog~ Report Number: [id number]: Total DLP = 334.00 mGy-cm Reason for Exam: epigatric abd pain, N/V/D EXAMINATION: CT ABDOMEN AND PELVIS WITH CONTRAST CLINICAL INFORMATION: Epigastric pain, nausea, vomiting, diarrhea COMPARISON: None available. TECHNIQUE: Multidetector volumetric images were obtained from the superior aspect of the liver through the pubic symphysis following administration 85 mL of Omnipaque 350 intravenous contrast. Sagittal and coronal reformatted images were obtained on the technologist's workstation. Oral contrast: No This CT examination was performed using dose optimization techniques as appropriate, variously including the following: *Automated exposure control *Adjustment of mA and/or kV according to patient size (this includes techniques or standardized protocols for targeted exams where dose is matched to indication/reason for exam; i.e. extremities or head) *Use of iterative reconstruction technique FINDINGS: LUNG BASES: The visualized lung bases are unremarkable. LIVER, GALLBLADDER, AND BILIARY TREE: The liver is normal in size, shape, and attenuation. No focal hepatic lesion or biliary ductal dilatation is present. The gallbladder is unremarkable with no evidence of radiopaque gallstones, gallbladder wall thickening, or obvious pericholecystic inflammatory changes. PANCREAS: Unremarkable. SPLEEN: Unremarkable. ADRENAL GLANDS: Unremarkable. KIDNEYS AND URETERS: Right kidney is absent. There are multiple since the left kidney. In the upper pole, there is an 8 x 15 mm stone. Adnexal region, there is a staghorn calculus measuring 4 x 33 mm In the lower pole, there is a 6 x 18 mm stone. There are a few other smaller stones. There are no obstructing stones. BLADDER: Unremarkable. GASTROINTESTINAL TRACT: There is fluid filling portions of the ileum and the distal jejunum. Portions of the small bowel are decompressed. There is no wall thickening or dilation The colon is mostly decompressed. The appendix is mostly gas-filled and thin-walled. ABDOMINAL WALL: No significant hernia is appreciated. LYMPH NODES: Normal. VASCULAR: Unremarkable. PELVIC VISCERA: Unremarkable. OSSEOUS STRUCTURES: Unremarkable. CT/CT abdomen pelvis w IV con IMPRESSION: There are multiple stones in the left kidney including 3 Staghorn calculi. Absent right kidney. Fluid-filled loops of small bowel with a slightly decompressed colon is likely related to gastroenteritis. There is no sign of obstruction or bowel wall thickening. Fleischner guidelines were followed. Electronically signed by: Simeon Wells MD 09/25/2025 10:05 AM [facility] External Record Review External record reviewed: Inpatient record Prescription Management I considered prescription management with: Other (compazine, loperamide) Social Determinants Patient?s care significantly limited by Social Determinants of Health including: Other Social Determinant of Health Critical Care Time Critical Care Time Critical Care Time: No Discharge Plan Discharge Clinical Impression: Gastroenteritis Patient Disposition: Home, Self-Care Instructions: Gastroenteritis (ED) Additional Instructions: Your lab workup today was reassuring.? The CT scan of your abdomen shows findings consistent with gastroenteritis (viral stomach bug). The treatment for this is supportive care. Symptoms usually resolve on their own in 48-72 hours.? The recommendation is rest and lots of oral hydration.? For the next 24 hours, stick to a GRADY diet (bananas rice, applesauce, tea, and toast) Compazine is an anti-nausea medication. This has been sent to your pharmacy for you to take as needed for nausea.? You can also try over the counter Pepto Bismol or Imodium as needed for upset stomach and diarrhea.? Follow up with your primary care provider this week. If you develop new or worsening symptoms call 911 or come back to the ER for further evaluation. 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 I would like you to follow up with Urology outpatient. I have provided you with a referral. Call them to establish care. They will not call you. Prescriptions: New prochlorperazine maleate [Compazine] 5 mg tablet 5 mg PO TID PRN (Reason: nausea and vomiting) Qty: 9 0RF loperamide 2 mg capsule 2 mg PO Q6H PRN (Reason: loose stool) Qty: 14 0RF Rx Instructions: Initial: 4 mg, followed by 2 mg after each loose stool; maximum: 16 mg/day (OTC: 8 mg/day) No Action amoxicillin-pot clavulanate 875-125 mg tablet 1 tab PO BID Qty: 14 0RF naproxen [Naprosyn] 500 mg tablet 500 mg PO BID Qty: 20 0RF amoxicillin-pot clavulanate 875-125 mg tablet 1 tab PO Q12H Qty: 14 0RF Referrals: [facility] [Provider Group, Urology] Referral Note: CT abdomen pelvis w IV con IMPRESSION: There are multiple stones in the left kidney including 3 Staghorn calculi. Absent right kidney. Physician,Unknown J [Primary Care Provider, Medical] Stand Alone Forms: Work/School Release Interventions: ED Discharge Assessment Last Done: 09/25/25 16:14 Discharge Date/Time: 09/25/25 16:15 Print Language: [place]an
[2025-09-25 09:10] LABS: Lipase 16 U/L (8-78)
[2025-09-25] MEDS: iohexoL 350 MG/ML 100 ML INFUS..BTL IV (09:48)
[2025-09-25 10:00] VITALS: BP 138/88; PULSE 78; RESP 20; TEMP 36.8; O2SAT 97
[2025-09-25 11:40] LABS: Resp Syncy Virus RNA Qual PCR NEGATIVE (Negative); SARS COV2 PCR INHOUSE NEGATIVE (Negative)
[2025-09-25 12:00] VITALS: BP 132/84; PULSE 80; RESP 20; O2SAT 97
[2025-09-25 14:00] VITALS: BP 134/80; PULSE 70; RESP 20; O2SAT 97
[2025-09-25 16:14] VITALS: BP 125/63; PULSE 107; RESP 16; TEMP 37.4; O2SAT 95
== END 2025-09-25 16:15 | disposition home or self-care (01) ==
PROVIDERS: Physician Assistant Medical; Emergency Provider Emergency Medicine Emergency Medical Services
DX: K52.9 Noninfective gastroenteritis and colitis, unspecified (principal); N20.0 Calculus of kidney
CPT/HCPCS: 36415; 74177; 80053; 83690; 83735; 85025; 87637; 96361; 96374; 96375; 99284; 99285; J0737; J1200; J2405; J2765; Q9967

== ENCOUNTER → 2025-09-25 08:43 | Outpatient (BNV) | payer OTHER, SELFPAY | PROVIDERS: Emergency Provider Emergency Medicine Emergency Medical Services; Visit Provider Radiology Diagnostic Radiology | DX: N20.0 Calculus of kidney (principal); Z90.5 Acquired absence of kidney | CPT/HCPCS: 74177 ==